=== PATIENT | male | born 1975 | race Caucasian/White ===

== ENCOUNTER → 2021-09-25 | Outpatient (CLI) | payer OTHER ==
[~2021-09-25] MED LIST: AMOCLA875 PO; HYDACE5325 PO; METPRE4DP PO; PRED20 PO; SULTRIDS PO
== END | disposition home or self-care (01) ==
LOC: LAB 13:24 → LAB SHORT 13:24
DX: J02.9 Acute pharyngitis, unspecified (principal)
CPT/HCPCS: 87081